=== PATIENT | female | born 1965 | race Caucasian/White ===

== ENCOUNTER 2018-07-24 11:34 | Emergency (ER) | payer OTHER ==
[~2018-07-24] VITALS: Ht 188 cm; Wt 136.1 kg
[2018-07-24] MEDS ORDERED: [UNRECOGNIZED DRUG - REMARK] (11:51)
[2018-07-24] MEDS ORDERED: CYMBALTA30 MG PO (11:51)
[2018-07-24] MEDS ORDERED: MOBIC15 MG PO (13:12)
[2018-07-24] MEDS ORDERED: ROBAXIN 750 MG750 M1 PO (13:12)
[2018-07-24 13:29] VITALS: BP 138/92
== END 2018-07-24 13:30 | disposition home or self-care (01) ==
LOC: M.ERS 11:34
DX: S16.1XXA Strain of muscle, fascia and tendon at neck level, initial encounter (principal); S50.01XA Contusion of right elbow, initial encounter; F41.9 Anxiety disorder, unspecified; F32.9 Major depressive disorder, single episode, unspecified; N80.9 Endometriosis, unspecified; Z88.0 Allergy status to penicillin; Z88.2 Allergy status to sulfonamides; Z90.710 Acquired absence of both cervix and uterus; Z90.49 Acquired absence of other specified parts of digestive tract; W10.8XXA Fall (on) (from) other stairs and steps, initial encounter; Y93.89 Activity, other specified; Y92.811 Bus as the place of occurrence of the external cause; Y99.8 Other external cause status